=== PATIENT | female | born 1950 | race Two or more races ===

== ENCOUNTER 2019-12-16 05:27 | Day surgery (SDC) | payer OTHER ==
[~2019-12-16 05:27] MED LIST: NORVASC5 MG PO; PRAVACHOL PO; SYNTHROID100 MCG PO
== END 2019-12-16 18:30 | disposition home or self-care (01) ==
LOC: CIR.AMB 05:27 → ADM 07:30 → CIR.AMB 07:30
PROVIDERS: ATTEND Obstetrics & Gynecology
DX: N93.8 Other specified abnormal uterine and vaginal bleeding (principal)

== ENCOUNTER → 2020-06-08 07:00 | Outpatient (CLI) | payer OTHER ==
[~2020-06-08] VITALS: Ht 152.4 cm; Wt 77.1 kg
[~2020-06-08 07:00] MED LIST changes: +COZAAR50 MG PO
== END | disposition home or self-care (01) ==
LOC: LAB 07:00 → RAD 07:00 → EDSTATUS 06-15 11:00 → OB/GYN 06-15 11:00
PROVIDERS: ATTEND Obstetrics & Gynecology
DX: Z20.828 Contact with and (suspected) exposure to other viral communicable diseases (principal); D25.1 Intramural leiomyoma of uterus; Z01.810 Encounter for preprocedural cardiovascular examination

== ENCOUNTER 2024-06-17 08:46 | Emergency (ER) | payer OTHER ==
[~2024-06-17] VITALS: Ht 157.5 cm; Wt 72.6 kg
[2024-06-17] MEDS ORDERED: ANASTROZOLE1 MG PO (09:01)
[2024-06-17] MEDS ORDERED: BRILINTA60 MG PO (09:01)
[2024-06-17] MEDS ORDERED: CRESTOR40 MG PO (09:02)
[2024-06-17] MEDS ORDERED: TOPROL XL25 M1 PO (09:02)
[2024-06-17] MEDS ORDERED: VAZALORE81 MG PO (09:02)
[2024-06-17] MEDS ORDERED: VANCOMYCIN HCL 1,000 MG VIAL IV ONE (09:30)
[2024-06-17] MEDS ORDERED: 0.9 % SODIUM CHLORIDE 1,000 ML IV SCH (09:30)
[2024-06-17 10:19] LABS: HEMATOCRIT 40.2 % (36.0-45.00); HEMOGLOBIN 13.5 g/dL (12.0-15.00); MEAN CELL VOLUME 86.8 fL (80.00-100.00); MEAN CORPUSCULAR HEMOGLOBIN 29.2 pg (27.00-32.0); MEAN CORPUSCULAR HGB CONC 33.6 g/dl (32.0-36.0); PLATELET COUNT 236 K/uL (150-450); RED BLOOD COUNT 4.63 M/uL (4.00-6.00); RED CELL DISTRIBUTION WIDTH 15.3 % (11.5-14.5)
[2024-06-17 10:52] LABS: ALBUMIN 3.6 gm/dL (3.4-5.0); BILIRUBIN TOTAL 0.62 mg/dL (0.3-1.2); CALCIUM 9.4 mg/dL (8.5-10.1); CREATININE SERUM 0.76 mg/dL (0.55-1.02); GFR 75.02; POTASSIUM 4.06 mEq/L (3.5-5.1); TOTAL PROTEIN 7.6 gm/dL (6.4-8.2)
[2024-06-17 10:58] LABS: INR 1.03; PARTIAL THROMBOPLASTIN TIME 27.6 SECONDS (22.0-34.0)
[2024-06-17 11:04] LABS: URINE APPEARANCE Clear; URINE BILIRRUBIN Negative (NEGATIVE); URINE BLOOD Negative; URINE COLOR Yellow; URINE GLUCOSE Negative (NEGATIVE); URINE KETONE Negative (NEGATIVE); URINE LEUKOCYTE Negative; URINE NITRATE Negative; URINE PROTEIN 30 (NEGATIVE); URINE UROBILINOGEN 0.2 E.U./dl
[2024-06-17 11:05] LABS: PROTHROMBIN TIME 11.2 SECONDS (9.0-11.5)
[2024-06-17 11:08] LABS: URINE EPITHELIAL CELLS 4.4 uL (0.0-38.8); URINE RBC 8.2 uL (0.0-20.8); URINE WBC 3.1 uL (0.0-23.2)
[2024-06-17 11:12] LABS: URINE BACTERIA 1.2 uL (0.0-1933)
== END 2024-06-17 18:02 | disposition home or self-care (01) ==
LOC: ER 08:48
PROVIDERS: General Practice
DX: R53.81 Other malaise (principal); N76.4 Abscess of vulva; I10 Essential (primary) hypertension; Z88.1 Allergy status to other antibiotic agents; Z88.2 Allergy status to sulfonamides
CPT/HCPCS: 36415; 71046; 93005; 96365; 96366; 99283; J3370; J7030